=== PATIENT | female | born 1950 | race Caucasian/White ===

== ENCOUNTER → 2019-09-27 | Outpatient (CLI) | payer MEDICARE, MEDICAID ==
[2019-09-27 08:40] LABS: URINE APPEARANCE HAZY; URINE COLOR YELLOW
[2019-09-27 08:41] LABS: URINE BILIRUBIN NEGATIVE (NEGATIVE); URINE BLOOD 250 ery/uL (NEGATIVE); URINE GLUCOSE NEGATIVE (NEGATIVE); URINE KETONE NEGATIVE (NEGATIVE); URINE LEUKOCYTE ESTERASE 2+ (NEGATIVE); URINE NITRATE NEGATIVE (NEGATIVE); URINE PROTEIN(semi-quant) 2+ mg/dL (NEGATIVE); URINE UROBILINOGEN NORMAL (NORMAL); URINE WBC >50 /hpf (0-3)
== END ==
LOC: LAB 07:15
PROVIDERS: Family Medicine
DX: N39.0 Urinary tract infection, site not specified (principal)